=== PATIENT | female | born 1950 | race Caucasian/White ===

== ENCOUNTER 2022-11-15 09:50 | Outpatient (CLI) | payer MEDICARE | END 2022-11-15 09:51 | disposition home or self-care (01) | LOC: NAV RAD 09:50 | PROVIDERS: ATTEND Family Medicine | DX: Z01.818 Encounter for other preprocedural examination (principal); R91.1 Solitary pulmonary nodule; I51.7 Cardiomegaly | CPT/HCPCS: 71046 ==

== ENCOUNTER 2024-06-21 19:46 | Emergency (ER) | payer MEDICARE ==
[2024-06-21] MEDS ORDERED: Acetaminophen 500 MG TAB ONE (20:09)
[2024-06-21] MEDS ORDERED: Ondansetron ODT 4 MG TAB ONE (20:09)
== END 2024-06-21 21:08 | disposition home or self-care (01) ==
LOC: NAV ERS 19:46
DX: J06.9 Acute upper respiratory infection, unspecified (principal); R19.7 Diarrhea, unspecified; R11.2 Nausea with vomiting, unspecified; Z55.6 Problems related to health literacy
CPT/HCPCS: 71046; 87428; Q0162